=== PATIENT | female | born 1985 | race Caucasian/White ===

== ENCOUNTER → 2021-11-14 17:33 | Observation (INO) ==
[2021-11-14 15:22] LABS: Varicella Zoster IgG Antibody Positive
[2021-11-14 15:28] LABS: Alanine Aminotransferase 10 Units/L (7-52); Aspartate Amino Transferase 20 Units/L (13-39); BUN/Creatinine Ratio 9 (6-26); Blood Urea Nitrogen 6 mg/dL (6-20); Uric Acid 3.7 mg/dL (2.3-7.6)
[2021-11-14 15:32] LABS: Hepatitis B Surface Antigen Nonreactive (Nonreactive)
[2021-11-14 15:47] LABS: Basophils % 0.3 %; Eosinophils # 0.1 K/mcL (0.0-0.6); Eosinophils % 1.1 %; Hematocrit 26.7 % (35.3-44.9); Hemoglobin 8.6 g/dL (11.5-15.4); Immature Granulocytes % 1.2 % (0-4); Lymphocytes # 3.3 K/mcL (0.6-4.6); Lymphocytes % 26.2 %; Mean Corpuscular HGB Conc 32.2 g/dL (31.6-35.5); Mean Corpuscular Hemoglobin 27.7 pg (28.0-33.3); Mean Corpuscular Volume 85.9 fL (83.0-100.0); Mean Platelet Volume 12.7 fL (9.4-12.4); Monocytes # 1.1 K/mcL (0.0-1.3); Monocytes % 9.1 %; Neutrophils # 7.7 K/mcL (1.6-8.9); Platelet Count 215 K/mcL (140-400); Red Blood Count 3.11 M/mcL (3.82-4.97); Red Cell Distribution Width 13.7 % (11.5-14.5); Segmented Neutrophils % 62.1 %; White Blood Count 12.5 K/mcL (4.3-11.1)
[2021-11-14 16:01] LABS: HIV-1&2 Antibody & p24 Ag Nonreactive (Nonreactive)
[2021-11-14 16:21] LABS: Rubella IgG Antibody Negative (POSITIVE)
[2021-11-14 16:35] LABS: Bilirubin,Urine Negative (Negative); Blood,Urine Negative (Negative); Calcium Oxalate Crystals,Urine Present per hpf; Clarity,Urine Clear (Clear); Color,Urine Yellow (Yellow); Glucose,Urine (UA) Normal (Normal); Ketones,Urine Negative (Negative); Leukocyte Esterase,Urine Trace (Negative); Mucus,Urine Few per lpf (None-Few); Nitrite,Urine Negative (Negative); Protein,Urine Trace mg/dL (Neg-Trace); RBC,Urine 0-3 per hpf (0-3); Specific Gravity,Urine 1.022 (1.010-1.025); Squamous Epithelial Cell,Urine Few per hpf (None-Few)
[2021-11-14 16:41] LABS: Creatinine,Urine 136 mg/dL; Protein/Creatinine Ratio,Urine 0.18 mg/mg (0.00-0.20)
[2021-11-14 16:42] LABS: Amphetamine Screen,Urine Positive ng/mL (Cutoff=1000); Barbiturate Screen,Urine Negative ng/mL (Cutoff=200); Benzodiazepines Screen,Urine Negative ng/mL (Cutoff=200); Cannabinoid Screen,Urine Negative ng/mL (Cutoff = 50); Cocaine Screen,Urine Negative ng/mL (Cutoff= 300); Opiate Screen,Urine Negative ng/mL (Cutoff=300); Phencyclidine Screen,Urine Negative ng/mL (Cutoff=25)
== END | disposition home or self-care (01) ==
LOC: 1NENULAB
PROVIDERS: ADMIT Obstetrics & Gynecology; ATTEND Obstetrics & Gynecology

== ENCOUNTER → 2021-12-19 10:55 | Observation (INO) | END | disposition home or self-care (01) | LOC: 1NENULAB | PROVIDERS: ADMIT Obstetrics & Gynecology; ATTEND Obstetrics & Gynecology ==

== ENCOUNTER 2021-12-23 12:37 | Inpatient (IN) ==
[2021-12-23] MEDS ORDERED: Ringers Solution, Lactated 1,000 ML IVC SCH (13:30)
[2021-12-23] MEDS ORDERED: Lidocaine 1% 20 ML MDV INFILT PRN (13:30)
[2021-12-23] MEDS ORDERED: Naloxone 0.4 MG/ML INJ IVP PRN (13:30)
[2021-12-23] MEDS ORDERED: Ondansetron 4 MG/2 ML VIAL IVP PRN (13:30)
[2021-12-23] MEDS ORDERED: Famotidine 20 MG/2 ML VIAL IVP PRN (13:30)
[2021-12-23] MEDS ORDERED: Azithromycin 500 MG in 0.9 % Sodium Chloride 250 ML IVPB PRN (13:30)
[2021-12-23] MEDS ORDERED: Metoclopramide 10 MG/2 ML VIAL IVP PRN (13:30)
[2021-12-23] MEDS ORDERED: EPHEDrine sulfate 50 MG/10 ML VIAL IVP PRN (13:39)
[2021-12-23] MEDS ORDERED: Epidural Premix (fent/bupiv) 110 ML EP SCH (13:45)
[2021-12-23 15:57] LABS: Basophils # 0.1 K/mcL (0.0-0.2); Basophils % 0.4 %; Eosinophils # 0.1 K/mcL (0.0-0.6); Eosinophils % 1.1 %; Hematocrit 35.3 % (35.3-44.9); Hemoglobin 11.1 g/dL (11.5-15.4); Lymphocytes # 2.7 K/mcL (0.6-4.6); Lymphocytes % 22.9 %; Mean Corpuscular HGB Conc 31.4 g/dL (31.6-35.5); Mean Corpuscular Hemoglobin 26.2 pg (28.0-33.3); Mean Corpuscular Volume 83.3 fL (83.0-100.0); Monocytes # 0.7 K/mcL (0.0-1.3); Monocytes % 6.3 %; Platelet Count 251 K/mcL (140-400); Red Blood Count 4.24 M/mcL (3.82-4.97); Red Cell Distribution Width 14.5 % (11.5-14.5); Segmented Neutrophils % 68.3 %; White Blood Count 11.8 K/mcL (4.3-11.1)
[2021-12-23] MEDS ORDERED: Ondansetron 4 MG/2 ML VIAL ONE (19:34)
[2021-12-23] MEDS ORDERED: *HR* FentaNYL (PF) 100 MCG/2 ML VIAL ONE (19:35)
[2021-12-23] MEDS ORDERED: Bupivacaine/PF 0.75% in Dex 2 ML AMPUL INFILT ONE (19:35)
[2021-12-23] MEDS ORDERED: Ropivacaine/PF 0.2% 20 ML VIAL ONE (19:40)
[2021-12-23] MEDS ORDERED: *HR* Ropivacaine/PF 0.5% 20 ML VIAL ONE (19:40)
[2021-12-23] MEDS ORDERED: EPHEDrine sulfate 50 MG/10 ML VIAL IVP ONE (19:48)
[2021-12-23] MEDS ORDERED: Ringers Solution, Lactated 1,000 ML ONE (20:23)
[2021-12-24] MEDS ORDERED: Oxytocin 30 UNIT/503 ML BAG IVC SCH ×2 (00:15→13:50)
[2021-12-24] MEDS ORDERED: Ibuprofen 600 MG TABLET PO ONE (11:01)
[2021-12-24 12:23] LABS: Amphetamine Screen,Urine Positive ng/mL (Cutoff=1000); Barbiturate Screen,Urine Negative ng/mL (Cutoff=200); Benzodiazepines Screen,Urine Negative ng/mL (Cutoff=200); Cannabinoid Screen,Urine Negative ng/mL (Cutoff = 50); Cocaine Screen,Urine Negative ng/mL (Cutoff= 300); Opiate Screen,Urine Negative ng/mL (Cutoff=300); Phencyclidine Screen,Urine Negative ng/mL (Cutoff=25)
[2021-12-24] MEDS ORDERED: Lanolin 7 G OINT...G. TP PRN (13:50)
[2021-12-24] MEDS ORDERED: OXYTOCIN/RINGERS LACTATE 10 UNIT/166.6 ML BAG IVC ONE (13:50)
[2021-12-24] MEDS ORDERED: Ondansetron ODT 4 MG TAB.RAPDIS SL PRN (13:50)
[2021-12-24] MEDS ORDERED: Benzocaine/Menthol 56 GM AEROSOL SPRAY TP PRN (13:50)
[2021-12-24] MEDS ORDERED: Rho Immune Globulin 1,500 UNIT SYRINGE IM PRN (13:50)
[2021-12-24] MEDS ORDERED: Measles/Mumps/Rubella Vacc 0.5 ML VIAL SQ PRN (13:50)
[2021-12-24] MEDS: Ibuprofen 600 MG TABLET PO SCH ×2 (15:00→19:50)
[2021-12-24] MEDS: Acetaminophen 325 MG TABLET PO SCH ×2 (17:08→19:50)
[2021-12-25] MEDS: Ibuprofen 600 MG TABLET PO SCH (02:00)
[2021-12-25] MEDS: Acetaminophen 325 MG TABLET PO SCH (02:00)
[2021-12-25 07:22] LABS: Basophils # 0.1 K/mcL (0.0-0.2); Basophils % 0.5 %; Eosinophils # 0.2 K/mcL (0.0-0.6); Eosinophils % 1.7 %; Hematocrit 29.1 % (35.3-44.9); Immature Granulocytes % 1.4 % (0-4); Lymphocytes # 3.9 K/mcL (0.6-4.6); Lymphocytes % 34.1 %; Mean Corpuscular HGB Conc 30.6 g/dL (31.6-35.5); Mean Corpuscular Hemoglobin 25.6 pg (28.0-33.3); Mean Corpuscular Volume 83.6 fL (83.0-100.0); Mean Platelet Volume 12.8 fL (9.4-12.4); Monocytes # 0.7 K/mcL (0.0-1.3); Monocytes % 6.1 %; Neutrophils # 6.4 K/mcL (1.6-8.9); Platelet Count 182 K/mcL (140-400); Red Blood Count 3.48 M/mcL (3.82-4.97); Red Cell Distribution Width 14.7 % (11.5-14.5); Segmented Neutrophils % 56.2 %; White Blood Count 11.4 K/mcL (4.3-11.1)
[2021-12-25 07:35] LABS: Hemoglobin 8.9 g/dL (11.5-15.4)
[2021-12-25 07:51] VITALS: BP 95/56; PULSE 91; TEMP 98; O2SAT 98
[2021-12-25] MEDS ORDERED: Prenatal Vit/FA 1 EACH TABLET PO SCH (09:00)
[2021-12-25] MEDS ORDERED: Etonogestrel 68 MG IMPLANT IL ONE ×2 (09:16→13:30)
[2021-12-25] MEDS ORDERED: Lidocaine/EPI 1:100k 1% 20 ML VIAL INFILT ONE (09:17)
== END 2021-12-25 14:00 | disposition home or self-care (01) | DRG 560 ==
LOC: 1NENULAB 12:37 → 1NENUOBS 12-24 13:12
PROVIDERS: ADMIT Obstetrics & Gynecology; ATTEND Obstetrics & Gynecology